=== PATIENT | female | born 1980 | race Caucasian/White ===

== ENCOUNTER 2017-11-17 22:03 | Emergency (ER) | payer OTHER ==
[~2017-11-17] VITALS: Ht 162.6 cm; Wt 124.7 kg
[~2017-11-17 22:03] MED LIST: ALBU90OI INH; AMOX500 PO; BENTYL20 MG PO; BENZ100A PO; BUPR75; Bactrim Ds Tab1 EACH PO; Bupropion Xl150 MG PO; CEPH500 PO; CODGUAEL PO; CYCL10 PO; DOXY100 PO; DULO30 PO; DULO60; ESTR2 PO; HYDACE5 PO; HYDR1TAB94 PO; IBUP800 PO; LOPE2C PO; METO25ER; METO50ER PO; NAPR500 PO; NORTEL; Nasal & Sinus D30 MG PO; Norco 5-325 Ta1 EACH PO; OXYACE5T PO; PHENA100 PO; PROM25; PROM25 PO; Prednisone20 MG PO; Prozac20 MG; SERT100; TRAM50 PO; ZOLOFT; Zofran8 MG PO
[2017-11-17] MEDS ORDERED: ATEN25 PO (22:17)
[2017-11-17] MEDS ORDERED: Nortriptyline H10 MG PO (22:17)
[2018-10-11] MEDS ORDERED: LEVSOD50 PO (19:06)
[2018-10-11] MEDS ORDERED: LORA1 PO (19:07)
[2018-10-11] MEDS ORDERED: Prozac20 MG (19:07)
[2018-10-14] MEDS ORDERED: LATUDA20 MG PO (13:36)
[2018-10-14] MEDS ORDERED: ZIPR20 PO (14:23)
[2018-10-14] MEDS ORDERED: BUSP5 PO (15:33)
[2018-10-14] MEDS ORDERED: Cymbalta30 MG PO (15:33)
== END 2017-11-17 23:07 | disposition home or self-care (01) ==
LOC: ER 22:03
DX: S59.901A Unspecified injury of right elbow, initial encounter (principal); J45.909 Unspecified asthma, uncomplicated; F32.9 Major depressive disorder, single episode, unspecified; F41.9 Anxiety disorder, unspecified; Z91.011 Allergy to milk products; Z91.018 Allergy to other foods; Z79.899 Other long term (current) drug therapy; Z90.710 Acquired absence of both cervix and uterus; Z87.891 Personal history of nicotine dependence; W01.0XXA Fall on same level from slipping, tripping and stumbling without subsequent striking against object, initial encounter
CPT/HCPCS: 29105; 73080; 99283

== ENCOUNTER 2018-05-26 22:52 | Emergency (ER) | payer OTHER ==
[~2018-05-26] VITALS: Ht 162.6 cm; Wt 97.5 kg
[~2018-05-26 22:52] MED LIST changes: +ATEN25 PO; +Nortriptyline H10 MG PO
== END 2018-05-27 01:58 | disposition home or self-care (01) ==
LOC: ER 22:52
DX: S80.12XA Contusion of left lower leg, initial encounter (principal); J45.909 Unspecified asthma, uncomplicated; F41.9 Anxiety disorder, unspecified; F32.9 Major depressive disorder, single episode, unspecified; Z91.011 Allergy to milk products; Z91.018 Allergy to other foods; Z79.899 Other long term (current) drug therapy; Z87.891 Personal history of nicotine dependence; V92.09XA Drowning and submersion due to fall off unspecified watercraft, initial encounter
CPT/HCPCS: 96374; 99283-25; J1885

== ENCOUNTER 2018-12-21 10:21 | Emergency (ER) | payer OTHER ==
[~2018-12-21] VITALS: Ht 162.6 cm; Wt 90.7 kg
[~2018-12-21 10:21] MED LIST changes: +BUSP5 PO; +Cymbalta30 MG PO; +LATUDA20 MG PO; +LEVSOD50 PO; +LORA1 PO; +ZIPR20 PO
[2018-12-21] MEDS ORDERED: TRAM50 PO (10:45)
[2018-12-21] MEDS ORDERED: TRAZ50 PO ×2 (10:45→11:41)
[2018-12-21 11:05] LABS: BASOPHILS ABSOLUTE AUTO 0.06 K/mm3 (0.00-0.23); BASOPHILS PERCENT AUTO 1 % (0-2); EOSINOPHILS ABSOLUTE AUTO 0.34 K/mm3 (0.00-0.68); EOSINOPHILS PERCENT AUTO 6 % (0-6); Hematocrit 37.5 % (33.0-51.0); Hemoglobin 11.9 g/dL (11.5-16.0); IMMATURE GRAN ABSOLUTE AUTO 0.01 K/mm3 (0.00-0.10); IMMATURE GRAN PERCENT AUTO 0 % (0-1); LYMPHOCYTES ABSOLUTE AUTO 2.24 K/mm3 (0.84-5.20); LYMPHOCYTES PERCENT AUTO 41 % (21-46); MONOCYTES ABSOLUTE AUTO 0.23 K/mm3 (0.16-1.47); MONOCYTES PERCENT AUTO 4 % (4-13); Mean Corpuscular HGB 28.3 pg (26.0-34.0); Mean Corpuscular HGB Conc 31.7 g/dL (31.5-36.5); Mean Corpuscular Volume 89 fL (80-100); Mean Platelet Volume 11.1 fL (9.1-12.4); NEUTROPHILS ABSOLUTE AUTO 2.64 K/mm3 (1.96-9.15); NEUTROPHILS PERCENT AUTO 48 % (41-73); Platelet Count 306 K/mm3 (150-400); RDW Coefficient Variation 14.4 % (11.7-14.2); RDW Standard Deviation 46.3 fL (35.1-46.3); Red Blood Cell Count 4.21 M/mm3 (3.80-5.20); White Blood Cell Count 5.52 K/mm3 (4.00-11.30)
[2018-12-21 11:26] LABS: Alanine Aminotransfer (ALT/SGP 27 U/L (12-78); Albumin, Blood 3.4 g/dL (3.4-5.0); Alk Phos 91 U/L (50-136); Anion Gap 8 mmol/L (6-16); Aspartate Aminotrans (AST/SGOT 17 U/L (12-37); Bilirubin, Total 0.5 mg/dL (0.1-1.0); Blood Urea Nitrogen 11 mg/dL (8-24); Bun/Creatinine Ratio 13.4 (12.0-20.0); CO2, Blood 27 mmol/L (21-32); Calcium, Blood 8.5 mg/dL (8.5-10.1); Chloride, Blood 110 mmol/L (98-108); Creatinine, Blood 0.82 mg/dL (0.40-1.00); Globulin, Blood 3.4 g/dL (2.2-4.0); Glomerular Filtration Rate >60 (60-); Glucose, Blood 140 mg/dL (70-99); Potassium, Blood 3.7 mmol/L (3.5-5.5); Sodium, Blood 145 mmol/L (136-145); Total Protein, Blood 6.8 g/dL (6.4-8.2)
== END 2018-12-21 12:06 | disposition home or self-care (01) ==
LOC: ER 10:21
PROVIDERS: Emergency Medicine
DX: K80.20 Calculus of gallbladder without cholecystitis without obstruction (principal); F41.9 Anxiety disorder, unspecified; F32.9 Major depressive disorder, single episode, unspecified; J45.909 Unspecified asthma, uncomplicated; Z91.011 Allergy to milk products; Z91.018 Allergy to other foods; Z79.899 Other long term (current) drug therapy; Z87.891 Personal history of nicotine dependence
CPT/HCPCS: 36415; 80053; 83690; 85025; 96361; 96374; 99284-25; J2405; J7030

== ENCOUNTER 2019-01-01 14:28 | Observation (INO) | payer OTHER ==
[~2019-01-01] VITALS: Ht 162.6 cm; Wt 99.8 kg
[~2019-01-01 14:28] MED LIST changes: +TRAZ50 PO
[2019-01-01 15:25] LABS: BASOPHILS ABSOLUTE AUTO 0.08 K/mm3 (0.00-0.23); BASOPHILS PERCENT AUTO 1 % (0-2); EOSINOPHILS ABSOLUTE AUTO 0.33 K/mm3 (0.00-0.68); EOSINOPHILS PERCENT AUTO 4 % (0-6); Hemoglobin 12.5 g/dL (11.5-16.0); IMMATURE GRAN ABSOLUTE AUTO 0.01 K/mm3 (0.00-0.10); IMMATURE GRAN PERCENT AUTO 0 % (0-1); LYMPHOCYTES PERCENT AUTO 36 % (21-46); MONOCYTES ABSOLUTE AUTO 0.45 K/mm3 (0.16-1.47); MONOCYTES PERCENT AUTO 6 % (4-13); Mean Corpuscular HGB 28.3 pg (26.0-34.0); Mean Corpuscular HGB Conc 32.1 g/dL (31.5-36.5); Mean Corpuscular Volume 88 fL (80-100); Mean Platelet Volume 10.9 fL (9.1-12.4); NEUTROPHILS ABSOLUTE AUTO 3.98 K/mm3 (1.96-9.15); NEUTROPHILS PERCENT AUTO 53 % (41-73); Platelet Count 355 K/mm3 (150-400); RDW Coefficient Variation 13.9 % (11.7-14.2); RDW Standard Deviation 45.1 fL (35.1-46.3); Red Blood Cell Count 4.41 M/mm3 (3.80-5.20); White Blood Cell Count 7.55 K/mm3 (4.00-11.30)
[2019-01-01 15:51] LABS: Alanine Aminotransfer (ALT/SGP 36 U/L (12-78); Albumin, Blood 3.9 g/dL (3.4-5.0); Alk Phos 94 U/L (50-136); Anion Gap 4 mmol/L (6-16); Aspartate Aminotrans (AST/SGOT 21 U/L (12-37); Bilirubin, Total 0.3 mg/dL (0.1-1.0); Blood Urea Nitrogen 13 mg/dL (8-24); Bun/Creatinine Ratio 18.6 (12.0-20.0); CO2, Blood 29 mmol/L (21-32); Calcium, Blood 8.7 mg/dL (8.5-10.1); Chloride, Blood 104 mmol/L (98-108); Globulin, Blood 3.8 g/dL (2.2-4.0); Glomerular Filtration Rate >60 (60-); Glucose, Blood 89 mg/dL (70-99); Potassium, Blood 3.7 mmol/L (3.5-5.5); Salicylate <1.7 mg/dL (2.8-20.0); Sodium, Blood 137 mmol/L (136-145); Total Protein, Blood 7.7 g/dL (6.4-8.2)
[2019-01-01 16:06] LABS: Acetaminophen, Random <2.0 ug/mL (10.0-30.0); Ethanol (Alcohol), Blood, Med <3 mg/dL
[2019-01-01 16:06] LABS: Source, Urine Clean Catch
[2019-01-01 16:11] LABS: Appearance, Urine Clear (Clear); Bilirubin, Urine Neg (Neg); Blood, Urine Neg (Neg); Color, Urine Yellow (P-Yellow); Glucose Qualitative, Urine Neg (Neg); Ketones, Urine Neg (Neg); Leukocyte Esterase, Urine Neg (Neg); Nitrite, Urine Neg (Neg); Protein, Urine Neg (Neg); Specific Gravity, Urine 1.005 (1.003-1.022); Urobilinogen, Urine NORM (Normal)
[2019-01-01 16:27] LABS: U Amphetamine Screen Not Detected; U Barbituate Screen Not Detected; U Benzodiazapine Screen DETECTED; U Buprenorphine Screen Not Detected; U Cannabinoids Screen Not Detected; U Cocaine Screen Not Detected; U Methadone Screen Not Detected; U Methamphetamine Screen Not Detected; U Opiates Screen Not Detected; U Oxycodone Screen Not Detected; U Phencyclidine Screen Not Detected; U Propoxyphene Screen Not Detected
[2019-01-01] MEDS ORDERED: PRAM.125 PO (16:28)
[2019-01-01] MEDS ORDERED: DULO30 PO ×2 (16:28→22:26)
[2019-01-01] MEDS ORDERED: OLAN5 PO (16:29)
[2019-01-01] MEDS ORDERED: PREPLUS CA-FE1 EACH PO (16:29)
[2019-01-01] MEDS ORDERED: CHOL10002 (16:29)
[2019-01-01] MEDS ORDERED: Advair Hfa 230-12 GM (16:30)
[2019-01-01] MEDS ORDERED: OLAN10 PO (22:17)
[2019-01-02] MEDS ORDERED: Zyprexa10 MG PO (13:34)
== END 2019-01-02 13:45 | disposition home or self-care (01) ==
LOC: ER 14:28 → EOR 14:29
PROVIDERS: Physician Assistant; ADMIT Emergency Medicine
DX: S61.512A Laceration without foreign body of left wrist, initial encounter (principal); F31.9 Bipolar disorder, unspecified; F13.129 Sedative, hypnotic or anxiolytic abuse with intoxication, unspecified; F60.3 Borderline personality disorder; J45.909 Unspecified asthma, uncomplicated; F41.9 Anxiety disorder, unspecified; Z91.018 Allergy to other foods; Z79.899 Other long term (current) drug therapy; Z87.891 Personal history of nicotine dependence; W26.0XXA Contact with knife, initial encounter
CPT/HCPCS: 36415; 80053; 81003; 81025; 84443; 85025; 93005; 93010; 99285-25; G0378; G0480; Q0177; Q3014

== ENCOUNTER 2019-09-12 08:56 | Day surgery (SDC) | payer BC ==
[~2019-09-12] VITALS: Ht 162.6 cm; Wt 109.1 kg
[~2019-09-12 08:56] MED LIST changes: +Advair Hfa 230-12 GM; +CHOL10002; +DULO60 PO; +LORA1; +OLAN10 PO; +OLAN5; +OLAN5 PO; +ONDA4 PO; +PRAM.125 PO; +PRAM.5 PO; +PREPLUS CA-FE1 EACH PO; +PROAIR RESPICL90 MCG INH; +TRAZ100 PO; +Zyprexa10 MG PO
--- NOTE | 2019-09-12 10:19 | NUR ---
09/12/19 1019 Mirta Valadez TWO UNSUCCESSFUL BEIR BLOCK ATTEMPTS IN LEFT HAND ORSC.FLL.
--- NOTE | 2019-09-12 12:47 | NUR ---
09/12/19 1247 Radha Hazel 1235 PT. VERBALIZES READY TO GO HOME. PT. DENIES ANY PAIN OR NAUSEA. PT. GIVEN A SLING FOR HOME. HOME DISCHARGE INSTRUCTIONS GIVEN TO PT. & MOM WITH UNDERSTANDING. ICE PACK SENT HOME WITH PT.
== END 2019-09-12 12:45 | disposition home or self-care (01) ==
LOC: ORSCSDS 08:56
PROVIDERS: Orthopaedic Surgery
PROC: 01N50ZZ Release Median Nerve, Open Approach (ICD-10-PCS; principal; 2019-09-12 11:00)
DX: G56.02 Carpal tunnel syndrome, left upper limb (principal); I10 Essential (primary) hypertension; E03.9 Hypothyroidism, unspecified; E66.01 Morbid (severe) obesity due to excess calories; Z68.41 Body mass index [BMI] 40.0-44.9, adult; M79.7 Fibromyalgia; E28.2 Polycystic ovarian syndrome; Z79.899 Other long term (current) drug therapy; J45.909 Unspecified asthma, uncomplicated
CPT/HCPCS: J0690; J1100; J1885; J2250; J2405; J2704; J3010; J7120

== ENCOUNTER 2019-09-27 18:34 | Observation (INO) | payer BC ==
[~2019-09-27] VITALS: Ht 162.6 cm; Wt 107.5 kg
[~2019-09-27 18:34] MED LIST changes: +LORA.5 PO; -LORA1; -OLAN5; +OLANZAPINE ODT5 MG PO; -PROAIR RESPICL90 MCG INH; -TRAZ100 PO
[2019-09-27 19:01] LABS: Source, Urine Voided
[2019-09-27 19:05] LABS: Bilirubin, Urine Neg (Neg); Blood, Urine Neg (Neg); Glucose Qualitative, Urine Neg (Neg); Ketones, Urine Neg (Neg); Leukocyte Esterase, Urine Neg (Neg); Nitrite, Urine Neg (Neg); Protein, Urine Neg (Neg); Specific Gravity, Urine 1.005 (1.003-1.022); Urobilinogen, Urine NORM (Normal); pH, Urine 6.5 (5.0-8.0)
[2019-09-27 19:05] LABS: BASOPHILS ABSOLUTE AUTO 0.09 K/mm3 (0.00-0.23); BASOPHILS PERCENT AUTO 1 % (0-2); EOSINOPHILS ABSOLUTE AUTO 0.13 K/mm3 (0.00-0.68); EOSINOPHILS PERCENT AUTO 2 % (0-6); Hematocrit 39.1 % (33.0-51.0); Hemoglobin 12.6 g/dL (11.5-16.0); IMMATURE GRAN ABSOLUTE AUTO 0.02 K/mm3 (0.00-0.10); IMMATURE GRAN PERCENT AUTO 0 % (0-1); LYMPHOCYTES ABSOLUTE AUTO 1.54 K/mm3 (0.84-5.20); LYMPHOCYTES PERCENT AUTO 17 % (21-46); MONOCYTES ABSOLUTE AUTO 0.41 K/mm3 (0.16-1.47); MONOCYTES PERCENT AUTO 5 % (4-13); Mean Corpuscular HGB 27.6 pg (26.0-34.0); Mean Corpuscular HGB Conc 32.2 g/dL (31.5-36.5); Mean Corpuscular Volume 86 fL (80-100); Mean Platelet Volume 10.8 fL (9.1-12.4); NEUTROPHILS ABSOLUTE AUTO 6.73 K/mm3 (1.96-9.15); NEUTROPHILS PERCENT AUTO 75 % (41-73); Platelet Count 331 K/mm3 (150-400); RDW Coefficient Variation 14.6 % (11.7-14.2); Red Blood Cell Count 4.56 M/mm3 (3.80-5.20); White Blood Cell Count 8.92 K/mm3 (4.00-11.30)
[2019-09-27 19:11] LABS: Appearance, Urine Clear (Clear); Color, Urine Yellow (P-Yellow)
[2019-09-27 19:25] LABS: Alanine Aminotransfer (ALT/SGP 156 U/L (12-78); Albumin, Blood 3.5 g/dL (3.4-5.0); Albumin/Globulin Ratio 0.9 (0.8-1.8); Alk Phos 141 U/L (50-136); Anion Gap 6 mmol/L (6-16); Aspartate Aminotrans (AST/SGOT 348 U/L (12-37); Bilirubin, Total 0.8 mg/dL (0.1-1.0); Blood Urea Nitrogen 12 mg/dL (8-24); CO2, Blood 24 mmol/L (21-32); Calcium, Blood 9.2 mg/dL (8.5-10.1); Chloride, Blood 112 mmol/L (98-108); Creatinine, Blood 0.86 mg/dL (0.40-1.00); Globulin, Blood 3.7 g/dL (2.2-4.0); Glomerular Filtration Rate >60 (60-); Glucose, Blood 129 mg/dL (70-99); Potassium, Blood 3.8 mmol/L (3.5-5.5); Sodium, Blood 142 mmol/L (136-145); Total Protein, Blood 7.2 g/dL (6.4-8.2)
[2019-09-27] MEDS ORDERED: PREPLUS CA-FE1 EACH PO (21:47)
[2019-09-27] MEDS ORDERED: BUPR100ER PO (21:52)
--- NOTE | 2019-09-28 06:34 | NUR ---
PT NEW ADMIT THIS SHIFT FOR ACUTE JOSE EDUARDO. PT VSS SINCE ARRIVING TO FLOOR, PAIN MGD PER EMAR W/REP RELIEF. PT NPO FOR PLAN FOR OR TODAY. IVF CONT PER ORDERS. PT USING CALL LIGHT FOR ASSISTANCE, WILL CONT TO MONITOR UNTIL REP GIVEN TO ONCOMING RN.
--- NOTE | 2019-09-28 15:41 | NUR ---
"DAY SURGERY RN | TO OR BOTH DOCTORS AND DIPLOMATIC COURIER HAVE SEEN. REPORT TO LALO PALENCIA."
--- NOTE | 2019-09-28 16:41 | NUR ---
PT IN OR
--- NOTE | 2019-09-28 19:04 | NUR ---
SUMMARY VSS, DENIES ANY NEED FOR PAIN MEDS SINCE POST OP, VOIDING WITHOUT DIFFICULTY, AMBULATED IN ROOM, TOLERATING REGULAR FOOD WELL, PT WANTS TO DC HOME TONIGHT BUT PHARMACIES ARE CLOSED AND WILL BE UNABLE TO FILL PAIN MED RX, PLAN TO DC HOME IN AM.
--- NOTE | 2019-09-29 06:08 | NUR ---
POD 1 S/P LAP JOSE EDUARDO. PT VSS T/O NIGHT. STERI STRIPS CDI. PAIN MGD W/PO PAIN MEDS W/REP RELIEF. PT VIANCA REG PO, NO N/O N/V, BT ACTIVE. PT VOIDING URINE W/O DIFFICULTY. PT INDEP IN ROOM, IS USING CALL LIGHT FOR ASSISTANCE, PLAN TO D/C HOME TODAY. WILL CONT TO MONITOR UNTIL REP GIVEN TO ONCOMING RN.
[2019-09-29] MEDS ORDERED: OXYC5 PO (13:56)
--- NOTE | 2019-09-29 14:51 | NUR ---
DISCHARGE SUMMARY PT A&OX4, VSS, WALKED OFF FLOOR, REF WC, WITH ALL PERSONAL POSSESSIONS INCLUDING DISCHARGE PACKET AND 1 NARC SCRIPT. DC INSTRUCTIONS PROVIDED. PT REP UNDERSTANDING THOSE INSTRUCTIONS INCLUDING 2 WK FU WITH SURGEON, NO DRIVING WHILE TAKING NARCS, NO LIFTING >20 LBS, SPLINTING, LEAVE STERI STRIPS IN PLACE 7-10 DAYS, WILL COME OFF ON THEIR OWN, OTHERWISE SG WILL REMOVE AT APPT, OK TO SHOWER NO TUB/JACUZZI. 2 IVS DC'D.
[2019-10-20] MEDS ORDERED: ATEN25 PO (11:01)
[2019-10-20] MEDS ORDERED: LEVSOD50 PO (11:02)
[2019-10-20] MEDS ORDERED: Ventolin/Prove6.7 GM INH (11:03)
[2019-10-20] MEDS ORDERED: LORA1 (11:03)
[2019-10-20] MEDS ORDERED: ONDA4 PO (11:03)
[2019-10-20] MEDS ORDERED: PRAM.5 PO (11:04)
[2019-10-20] MEDS ORDERED: OLAN5 (11:04)
[2019-10-20] MEDS ORDERED: DULO60 PO (11:04)
[2019-10-20] MEDS ORDERED: TRAZ100 PO (11:05)
== END 2019-09-29 14:20 | disposition home or self-care (01) ==
LOC: ER 18:34 → SURS 18:35
PROVIDERS: Emergency Medicine; ADMIT Surgery
DX: K80.10 Calculus of gallbladder with chronic cholecystitis without obstruction (principal); J45.909 Unspecified asthma, uncomplicated; F41.9 Anxiety disorder, unspecified; F32.9 Major depressive disorder, single episode, unspecified; Z79.899 Other long term (current) drug therapy; Z87.891 Personal history of nicotine dependence
CPT/HCPCS: 36415; 76705; 80053; 81003; 81025; 83690; 85025; 96365; 96375; 96376; 99285-25; G0378; J0690; J1100; J1170; J1885; J2250; J2405; J2543; J2704; J2710; J2765; J3010; J7030; J7120

== ENCOUNTER 2019-10-24 11:02 | Day surgery (SDC) | payer BC ==
[~2019-10-24] VITALS: Ht 162.6 cm; Wt 107.6 kg
[~2019-10-24 11:02] MED LIST changes: +BUPR100ER PO; +LORA1; +OLAN5; +OXYC5 PO; +TRAZ100 PO; +Ventolin/Prove6.7 GM INH
[2019-10-25] MEDS ORDERED: Roxicodone5 MG PO (18:02)
== END 2019-10-24 14:24 | disposition home or self-care (01) ==
LOC: ORSCSDS 11:02
PROVIDERS: Orthopaedic Surgery
PROC: 01N50ZZ Release Median Nerve, Open Approach (ICD-10-PCS; principal; 2019-10-24 13:00)
DX: G56.01 Carpal tunnel syndrome, right upper limb (principal); I10 Essential (primary) hypertension; E03.9 Hypothyroidism, unspecified; E28.2 Polycystic ovarian syndrome; E66.01 Morbid (severe) obesity due to excess calories; Z68.41 Body mass index [BMI] 40.0-44.9, adult; F41.8 Other specified anxiety disorders; F43.10 Post-traumatic stress disorder, unspecified; I47.1 Supraventricular tachycardia; F17.290 Nicotine dependence, other tobacco product, uncomplicated; Z79.899 Other long term (current) drug therapy
CPT/HCPCS: J0690; J2250; J2704; J3010; J7120

== ENCOUNTER 2019-10-25 16:33 | Emergency (ER) | payer BC ==
[~2019-10-25] VITALS: Ht 162.6 cm; Wt 107.5 kg
[2019-10-25] MEDS ORDERED: Roxicodone5 MG PO (18:02)
== END 2019-10-25 18:28 | disposition home or self-care (01) ==
LOC: ER 16:33
DX: G89.18 Other acute postprocedural pain (principal); M79.641 Pain in right hand; Z91.018 Allergy to other foods; Z79.899 Other long term (current) drug therapy; F41.9 Anxiety disorder, unspecified; J45.909 Unspecified asthma, uncomplicated; F31.9 Bipolar disorder, unspecified; Z87.891 Personal history of nicotine dependence
CPT/HCPCS: 96372; 99283-25; J1885; J3010

== ENCOUNTER 2019-11-21 12:22 | Emergency (ER) | payer BC ==
[~2019-11-21] VITALS: Ht 162.6 cm; Wt 104.3 kg
[~2019-11-21 12:22] MED LIST changes: +Roxicodone5 MG PO
[2019-11-21] MEDS ORDERED: CYCL10 PO (15:01)
[2019-11-21] MEDS ORDERED: NAPR550 PO (15:01)
== END 2019-11-21 15:38 | disposition home or self-care (01) ==
LOC: ER 12:22
DX: M62.830 Muscle spasm of back (principal); F31.9 Bipolar disorder, unspecified; Z87.891 Personal history of nicotine dependence
CPT/HCPCS: 96372; 99283-25; J1885

== ENCOUNTER 2020-07-27 03:37 | Emergency (ER) | payer OTHER, BC ==
[~2020-07-27] VITALS: Ht 162.6 cm; Wt 102.1 kg
[~2020-07-27 03:37] MED LIST changes: +NAPR550 PO
[2020-07-27] MEDS ORDERED: CYCL10 PO (05:44)
== END 2020-07-27 06:05 | disposition home or self-care (01) ==
LOC: ER 03:37
DX: M54.5 Low back pain (principal); R20.2 Paresthesia of skin; E11.9 Type 2 diabetes mellitus without complications; J45.909 Unspecified asthma, uncomplicated; F41.9 Anxiety disorder, unspecified; F32.9 Major depressive disorder, single episode, unspecified; Z87.891 Personal history of nicotine dependence; Z91.018 Allergy to other foods; Z79.899 Other long term (current) drug therapy; W01.0XXA Fall on same level from slipping, tripping and stumbling without subsequent striking against object, initial encounter
CPT/HCPCS: 72100; 96372; 99283-25; J1100; J1885

== ENCOUNTER 2020-09-02 09:14 | Day surgery (SDC) | payer BC ==
[~2020-09-02 09:14] MED LIST changes: +CENTRUM SILVER1 EAC2 PO
--- NOTE | 2020-09-02 10:01 | NUR ---
Ambulatory in Day Surgery Patient confirms NPO status and agrees with scheduled surgery. Lungs clear T/O to Auscultation. Patient confirms NPO status and agrees with scheduled surgery.
--- NOTE | 2020-09-02 10:56 | NUR ---
09/02/20 1056 MarbellaAlberta R History, Chart, Medications and Allergies reviewed before start of procedure.Patient confirms NPO status and agrees with scheduled surgery.3-LEAD EKG REVIEWED WITH PHYSICIAN PRIOR TO START OF PROCEDURE.MONITOR INTACT WITH CONTINUOUS PULSE OXIMETRY AND INTERMITTENT BP.O2 VIA N/C INTACT THROUGHOUT SEDATION/PROCEDURE. PATIENT DETERMINED TO BE ASA APPROPRIATE FOR PROPOFOL SEDATION PRIOR TO START OF PROCEDURE BY DR. MATT
--- NOTE | 2020-09-02 11:47 | NUR ---
PT INSTRUCTED TO USE HEAT TO HELP W/IV INFILTRATION SITE.
--- NOTE | 2020-09-02 11:49 | NUR ---
Discharge instructions reviewed with patient. Patient verbalizes understanding. Copy given to patient to take home. Discharged via wheelchair to private car for ride home. PT TOLERATED CRACKERS AND JUICE WELL.
== END 2020-09-02 12:00 | disposition home or self-care (01) ==
LOC: ORSCMMR 09:14 → ORD 10:00 → ORSCMMR 12:00
PROVIDERS: Internal Medicine Gastroenterology
PROC: 0DB68ZX Excision of Stomach, Via Natural or Artificial Opening Endoscopic, Diagnostic (ICD-10-PCS; principal; 2020-09-02 10:00)
PROC: 0DB98ZX Excision of Duodenum, Via Natural or Artificial Opening Endoscopic, Diagnostic (ICD-10-PCS; principal; 2020-09-02 10:00)
DX: K92.1 Melena (principal); Z98.84 Bariatric surgery status; K44.9 Diaphragmatic hernia without obstruction or gangrene; Z87.11 Personal history of peptic ulcer disease; E11.9 Type 2 diabetes mellitus without complications; E03.9 Hypothyroidism, unspecified; F31.9 Bipolar disorder, unspecified; R00.0 Tachycardia, unspecified; E66.01 Morbid (severe) obesity due to excess calories; Z68.36 Body mass index [BMI] 36.0-36.9, adult; Z79.899 Other long term (current) drug therapy
CPT/HCPCS: 82947; 88305; 88342; J2250; J2704; J7120

== ENCOUNTER 2020-10-07 17:15 | Emergency (ER) | payer BC ==
[~2020-10-07] VITALS: Ht 162.6 cm; Wt 93.0 kg
[2020-10-07] MEDS ORDERED: BUPR100ER PO (17:46)
[2020-10-07] MEDS ORDERED: CLON.5 PO (17:47)
[2020-10-07] MEDS ORDERED: CYMBALTA30 MG PO (17:47)
[2020-10-07] MEDS ORDERED: LEVO-T50 MC1 PO (17:47)
[2020-10-07] MEDS ORDERED: ATENOLOL25 MG PO (17:47)
[2020-10-07] MEDS ORDERED: LAMOTRIGINE25 M2 PO (17:47)
[2020-10-07] MEDS ORDERED: PROMETRIUM200 M1 PO (17:47)
[2020-10-07 20:12] LABS: Alanine Aminotransfer (ALT/SGP 17 U/L (12-78); Albumin, Blood 3.6 g/dL (3.4-5.0); Albumin/Globulin Ratio 1.1 (0.8-1.8); Alk Phos 61 U/L (50-136); Anion Gap 2 mmol/L (6-16); Aspartate Aminotrans (AST/SGOT 18 U/L (12-37); Bilirubin, Total 0.3 mg/dL (0.1-1.0); Blood Urea Nitrogen 15 mg/dL (8-24); Bun/Creatinine Ratio 17.7 (12.0-20.0); CO2, Blood 31 mmol/L (21-32); Calcium, Blood 8.5 mg/dL (8.5-10.1); Chloride, Blood 109 mmol/L (98-108); Creatinine, Blood 0.85 mg/dL (0.40-1.00); Free Thyroxine 1.03 ng/dL (0.70-1.60); Globulin, Blood 3.4 g/dL (2.2-4.0); Glomerular Filtration Rate >60 (60-); Glucose, Blood 81 mg/dL (70-99); Sodium, Blood 142 mmol/L (136-145); Thyroid Stimulating Hormone 0.881 uIU/mL (0.360-4.800)
[2020-10-07] MEDS ORDERED: Ativan0.5 MG PO (21:12)
== END 2020-10-07 21:18 | disposition home or self-care (01) ==
LOC: ER 17:15
PROVIDERS: Emergency Medicine
DX: F41.9 Anxiety disorder, unspecified (principal); J45.909 Unspecified asthma, uncomplicated; F31.9 Bipolar disorder, unspecified; E11.9 Type 2 diabetes mellitus without complications; Z79.3 Long term (current) use of hormonal contraceptives; Z79.899 Other long term (current) drug therapy; Z87.891 Personal history of nicotine dependence
CPT/HCPCS: 36415; 80053; 84439; 84443; 99284

== ENCOUNTER 2020-10-18 19:01 | Emergency (ER) | payer BC ==
[~2020-10-18] VITALS: Ht 162.6 cm; Wt 90.7 kg
[~2020-10-18 19:01] MED LIST changes: +ATENOLOL25 MG PO; +Ativan0.5 MG PO; +CLON.5 PO; +CYMBALTA30 MG PO; +LAMOTRIGINE25 M2 PO; +LEVO-T50 MC1 PO; +PROMETRIUM200 M1 PO
[2020-10-18 20:08] LABS: Influenza A, PCR Negative (NEGATIVE); Influenza B, PCR Negative (NEGATIVE); Resp Syncytial Virus, PCR Negative (NEGATIVE); SARS-Cov-2 (COVID-19) PCR, MMC Negative (NEGATIVE)
== END 2020-10-18 19:55 | disposition home or self-care (01) ==
LOC: ER 19:01
PROVIDERS: Physician Assistant
DX: R05 Cough (principal); F41.9 Anxiety disorder, unspecified; F31.9 Bipolar disorder, unspecified; E11.9 Type 2 diabetes mellitus without complications; J45.909 Unspecified asthma, uncomplicated; Z20.828 Contact with and (suspected) exposure to other viral communicable diseases; Z79.3 Long term (current) use of hormonal contraceptives; Z87.891 Personal history of nicotine dependence; Z79.899 Other long term (current) drug therapy
CPT/HCPCS: 0241U; 99284

== ENCOUNTER 2020-12-22 23:37 | Emergency (ER) | payer BC ==
[~2020-12-22] VITALS: Ht 162.6 cm; Wt 86.2 kg
[2020-12-22] MEDS ORDERED: BUPROPION XL150 M1 PO (23:47)
[2020-12-22] MEDS ORDERED: TOPI25C PO (23:47)
[2020-12-23 00:33] LABS: Source, Urine Clean Catch
[2020-12-23 00:39] LABS: BASOPHILS ABSOLUTE AUTO 0.09 K/mm3 (0.00-0.23); BASOPHILS PERCENT AUTO 1 % (0-2); EOSINOPHILS ABSOLUTE AUTO 0.12 K/mm3 (0.00-0.68); EOSINOPHILS PERCENT AUTO 1 % (0-6); Hematocrit 44.6 % (33.0-51.0); Hemoglobin 14.4 g/dL (11.5-16.0); IMMATURE GRAN ABSOLUTE AUTO 0.01 K/mm3 (0.00-0.10); IMMATURE GRAN PERCENT AUTO 0 % (0-1); LYMPHOCYTES ABSOLUTE AUTO 3.42 K/mm3 (0.84-5.20); LYMPHOCYTES PERCENT AUTO 40 % (21-46); MONOCYTES ABSOLUTE AUTO 0.55 K/mm3 (0.16-1.47); MONOCYTES PERCENT AUTO 7 % (4-13); Mean Corpuscular HGB 29.1 pg (26.0-34.0); Mean Corpuscular HGB Conc 32.3 g/dL (31.5-36.5); Mean Corpuscular Volume 90 fL (80-100); Mean Platelet Volume 11.2 fL (9.1-12.4); NEUTROPHILS ABSOLUTE AUTO 4.33 K/mm3 (1.96-9.15); NEUTROPHILS PERCENT AUTO 51 % (41-73); Platelet Count 302 K/mm3 (150-400); RDW Coefficient Variation 12.9 % (11.7-14.2); RDW Standard Deviation 42.4 fL (35.1-46.3); Red Blood Cell Count 4.94 M/mm3 (3.80-5.20); White Blood Cell Count 8.52 K/mm3 (4.00-11.30)
[2020-12-23 00:41] LABS: Appearance, Urine Clear (Clear); Bilirubin, Urine Neg (Neg); Blood, Urine Neg (Neg); Color, Urine Yellow (P-Yellow); Glucose Qualitative, Urine Neg (Neg); Ketones, Urine 1+ (Neg); Leukocyte Esterase, Urine 1+ (Neg); Nitrite, Urine Neg (Neg); Protein, Urine 1+ (Neg); Urobilinogen, Urine NORM (Normal)
[2020-12-23 00:49] LABS: Mucus Light (0-Heavy); Squamous Epithelial Cells Mod /hpf (Few)
[2020-12-23 00:50] LABS: Bacteria Mod /hpf; Red Blood Cells, Urine Rare /hpf (0-2)
[2020-12-23 00:52] LABS: U Amphetamine Screen Not Detected; U Barbituate Screen Not Detected; U Benzodiazapine Screen Not Detected; U Buprenorphine Screen Not Detected; U Cannabinoids Screen Not Detected; U Cocaine Screen Not Detected; U Methadone Screen Not Detected; U Methamphetamine Screen Not Detected; U Opiates Screen Not Detected; U Oxycodone Screen Not Detected; U Phencyclidine Screen Not Detected; U Propoxyphene Screen Not Detected
[2020-12-23 00:56] LABS: Alanine Aminotransfer (ALT/SGP 29 U/L (12-78); Albumin, Blood 3.9 g/dL (3.4-5.0); Albumin/Globulin Ratio 1.1 (0.8-1.8); Alk Phos 69 U/L (50-136); Anion Gap 5 mmol/L (6-16); Aspartate Aminotrans (AST/SGOT 18 U/L (12-37); Bilirubin, Total 0.5 mg/dL (0.1-1.0); Blood Urea Nitrogen 10 mg/dL (8-24); CO2, Blood 30 mmol/L (21-32); Calcium, Blood 8.8 mg/dL (8.5-10.1); Chloride, Blood 107 mmol/L (98-108); Creatinine, Blood 0.91 mg/dL (0.40-1.00); Ethanol (Alcohol), Blood, Med <3 mg/dL; Globulin, Blood 3.6 g/dL (2.2-4.0); Glomerular Filtration Rate >60 (60-); Glucose, Blood 82 mg/dL (70-99); Potassium, Blood 3.8 mmol/L (3.5-5.5); Salicylate <1.7 mg/dL (2.8-20.0); Sodium, Blood 142 mmol/L (136-145); Total Protein, Blood 7.5 g/dL (6.4-8.2)
[2020-12-23 00:59] LABS: Acetaminophen, Random <2.0 ug/mL (10.0-30.0)
== END 2020-12-23 03:03 | disposition home or self-care (01) ==
LOC: ER 23:37
PROVIDERS: Emergency Medicine
DX: S71.112A Laceration without foreign body, left thigh, initial encounter (principal); E11.9 Type 2 diabetes mellitus without complications; E03.9 Hypothyroidism, unspecified; Z79.899 Other long term (current) drug therapy; Z87.891 Personal history of nicotine dependence; X78.9XXA Intentional self-harm by unspecified sharp object, initial encounter
CPT/HCPCS: 36415; 80053; 81001; 81025; 85025; 87086; 99285-25; G0480; Q0177; Q3014

== ENCOUNTER 2021-05-22 02:58 | Emergency (ER) | payer BC ==
[~2021-05-22] VITALS: Ht 162.6 cm; Wt 79.4 kg
[~2021-05-22 02:58] MED LIST changes: +BUPROPION XL150 M1 PO; +TOPI25C PO
== END 2021-05-22 04:16 | disposition left against medical advice (07) ==
LOC: ER 02:58
DX: Z53.21 Procedure and treatment not carried out due to patient leaving prior to being seen by health care provider (principal)

== ENCOUNTER 2021-06-12 22:49 | Emergency (ER) | payer OTHER, BC ==
[~2021-06-12] VITALS: Ht 162.6 cm; Wt 76.2 kg
== END 2021-06-13 04:46 | disposition home or self-care (01) ==
LOC: ER 22:49
DX: S90.122A Contusion of left lesser toe(s) without damage to nail, initial encounter (principal); W20.8XXA Other cause of strike by thrown, projected or falling object, initial encounter; J45.909 Unspecified asthma, uncomplicated; E11.9 Type 2 diabetes mellitus without complications; E03.9 Hypothyroidism, unspecified
CPT/HCPCS: 73620; 96372; 99283-25; J1885

== ENCOUNTER 2021-08-16 09:03 | Day surgery (SDC) | payer OTHER, BC ==
[~2021-08-16] VITALS: Ht 167.6 cm; Wt 75.0 kg
--- NOTE | 2021-08-16 09:50 | NUR ---
08/16/21 0930 Molly Jacobs History, Chart, Medications and Allergies reviewed before start of procedure.PATIENT DETERMINED TO BE ASA APPROPRIATE FOR PROPOFOL SEDATION PRIOR TO START OF PROCEDURE BY . MONITOR INTACT WITH CONTINUOUS PULSE OXIMETRY AND INTERMITTENT BP.3-LEAD EKG REVIEWED WITH PHYSICIAN PRIOR TO START OF PROCEDURE.O2 VIA N/C INTACT THROUGHOUT SEDATION/PROCEDURE.
--- NOTE | 2021-08-16 10:46 | NUR ---
Discharge instructions reviewed with patient. Patient verbalizes understanding. Copy given to patient to take home. PT ATE SANDWICH, TOLERATING FLUIDS. NO PAIN. Discharged via wheelchair to private car for ride home.
== END 2021-08-16 10:47 | disposition home or self-care (01) ==
LOC: ORSCMMR 09:03 → ORSCSDS 10:15 → ORSCMMR 10:47
PROVIDERS: Surgery
PROC: 0DJD8ZZ Inspection of Lower Intestinal Tract, Via Natural or Artificial Opening Endoscopic (ICD-10-PCS; principal; 2021-08-16 10:15)
DX: R19.4 Change in bowel habit (principal); Z80.0 Family history of malignant neoplasm of digestive organs; E11.9 Type 2 diabetes mellitus without complications; E03.9 Hypothyroidism, unspecified; F31.9 Bipolar disorder, unspecified; F41.8 Other specified anxiety disorders; J45.909 Unspecified asthma, uncomplicated; Z79.899 Other long term (current) drug therapy
CPT/HCPCS: 82947; J2704; J7120

== ENCOUNTER 2021-08-19 00:38 | Emergency (ER) | payer OTHER, BC ==
[~2021-08-19] VITALS: Ht 162.6 cm; Wt 74.8 kg
[2021-08-19 03:41] LABS: SARS-Cov-2 (COVID-19) PCR, MMC NEGATIVE (NEGATIVE)
[2021-08-19] MEDS ORDERED: Prednisone20 MG PO (04:31)
== END 2021-08-19 05:22 | disposition home or self-care (01) ==
LOC: ER 00:38
PROVIDERS: Emergency Medicine
DX: J06.9 Acute upper respiratory infection, unspecified (principal); J45.909 Unspecified asthma, uncomplicated; Z20.822 Contact with and (suspected) exposure to COVID-19; E03.9 Hypothyroidism, unspecified; E11.9 Type 2 diabetes mellitus without complications; Z87.891 Personal history of nicotine dependence; Z79.899 Other long term (current) drug therapy
CPT/HCPCS: 71045; 93005; 93010; 99284-25; J7512; U0004

== ENCOUNTER → 2021-09-29 | Outpatient (CLI) | payer OTHER, BC ==
[2021-09-29 19:09] LABS: BASOPHILS ABSOLUTE AUTO 0.09 K/mm3 (0.00-0.23); BASOPHILS PERCENT AUTO 1 % (0-2); EOSINOPHILS ABSOLUTE AUTO 0.13 K/mm3 (0.00-0.68); EOSINOPHILS PERCENT AUTO 2 % (0-6); Hematocrit 37.1 % (33.0-51.0); Hemoglobin 11.4 g/dL (11.5-16.0); IMMATURE GRAN ABSOLUTE AUTO 0.01 K/mm3 (0.00-0.10); IMMATURE GRAN PERCENT AUTO 0 % (0-1); LYMPHOCYTES ABSOLUTE AUTO 1.99 K/mm3 (0.84-5.20); LYMPHOCYTES PERCENT AUTO 31 % (21-46); MONOCYTES ABSOLUTE AUTO 0.44 K/mm3 (0.16-1.47); MONOCYTES PERCENT AUTO 7 % (4-13); Mean Corpuscular HGB 26.8 pg (26.0-34.0); Mean Corpuscular HGB Conc 30.7 g/dL (31.5-36.5); Mean Corpuscular Volume 87 fL (80-100); Mean Platelet Volume 11.4 fL (9.1-12.4); NEUTROPHILS ABSOLUTE AUTO 3.73 K/mm3 (1.96-9.15); NEUTROPHILS PERCENT AUTO 58 % (41-73); Platelet Count 397 K/mm3 (150-400); RDW Coefficient Variation 14.3 % (11.7-14.2); RDW Standard Deviation 45.7 fL (35.1-46.3); Red Blood Cell Count 4.25 M/mm3 (3.80-5.20); White Blood Cell Count 6.39 K/mm3 (4.00-11.30)
== END | disposition home or self-care (01) ==
LOC: LAB SHORT 14:25
PROVIDERS: Internal Medicine Hematology & Oncology
DX: D64.9 Anemia, unspecified (principal)
CPT/HCPCS: 85025

== ENCOUNTER 2021-11-08 17:16 | Emergency (ER) | payer BC, OTHER ==
[~2021-11-08] VITALS: Ht 162.6 cm; Wt 70.3 kg
[~2021-11-08 17:16] MED LIST changes: +LAMO100 PO; -LAMOTRIGINE25 M2 PO
[2021-11-08 18:26] LABS: BASOPHILS ABSOLUTE AUTO 0.09 K/mm3 (0.00-0.23); BASOPHILS PERCENT AUTO 1 % (0-2); EOSINOPHILS ABSOLUTE AUTO 0.17 K/mm3 (0.00-0.68); EOSINOPHILS PERCENT AUTO 2 % (0-6); Hematocrit 42.5 % (33.0-51.0); Hemoglobin 13.5 g/dL (11.5-16.0); IMMATURE GRAN ABSOLUTE AUTO 0.02 K/mm3 (0.00-0.10); IMMATURE GRAN PERCENT AUTO 0 % (0-1); LYMPHOCYTES ABSOLUTE AUTO 2.66 K/mm3 (0.84-5.20); LYMPHOCYTES PERCENT AUTO 36 % (21-46); MONOCYTES ABSOLUTE AUTO 0.33 K/mm3 (0.16-1.47); MONOCYTES PERCENT AUTO 5 % (4-13); Mean Corpuscular HGB 28.2 pg (26.0-34.0); Mean Corpuscular HGB Conc 31.8 g/dL (31.5-36.5); Mean Corpuscular Volume 89 fL (80-100); Mean Platelet Volume 11.4 fL (9.1-12.4); NEUTROPHILS ABSOLUTE AUTO 4.09 K/mm3 (1.96-9.15); NEUTROPHILS PERCENT AUTO 56 % (41-73); Platelet Count 273 K/mm3 (150-400); RDW Standard Deviation 55.8 fL (35.1-46.3); Red Blood Cell Count 4.78 M/mm3 (3.80-5.20); White Blood Cell Count 7.36 K/mm3 (4.00-11.30)
[2021-11-08] MEDS ORDERED: METHYLPHENIDATE20 M1 PO (18:31)
[2021-11-08] MEDS ORDERED: QVAR REDIHALE10.6 G2 INH (18:31)
[2021-11-08 19:01] LABS: Alanine Aminotransfer (ALT/SGP 41 U/L (12-78); Albumin/Globulin Ratio 1.3 (0.8-1.8); Alk Phos 53 U/L (50-136); Anion Gap 4 mmol/L (6-16); Aspartate Aminotrans (AST/SGOT 23 U/L (12-37); Bilirubin, Total 0.5 mg/dL (0.1-1.0); Blood Urea Nitrogen 15 mg/dL (8-24); Bun/Creatinine Ratio 15.9 (12.0-20.0); CO2, Blood 27 mmol/L (21-32); Calcium, Blood 9.2 mg/dL (8.5-10.1); Chloride, Blood 108 mmol/L (98-108); Creatinine, Blood 0.94 mg/dL (0.40-1.00); Globulin, Blood 3.1 g/dL (2.2-4.0); Glomerular Filtration Rate >60 (60-); Glucose, Blood 107 mg/dL (70-99); Potassium, Blood 3.6 mmol/L (3.5-5.5); Sodium, Blood 139 mmol/L (136-145); Total Protein, Blood 7.1 g/dL (6.4-8.2)
[2021-11-08 19:10] LABS: Source, Urine Clean Catch
[2021-11-08 19:16] LABS: Appearance, Urine Clear (Clear); Bilirubin, Urine Neg (Neg); Blood, Urine Neg (Neg); Color, Urine Yellow (P-Yellow); Glucose Qualitative, Urine Neg (Neg); Ketones, Urine 1+ (Neg); Leukocyte Esterase, Urine 1+ (Neg); Nitrite, Urine Neg (Neg); Protein, Urine Neg (Neg); Urobilinogen, Urine NORM (Normal); pH, Urine 6.5 (5.0-8.0)
[2021-11-08 19:22] LABS: Bacteria Mod /hpf; Red Blood Cells, Urine 0-2 /hpf (0-2); Squamous Epithelial Cells Few /hpf (Few)
[2022-06-01] MEDS ORDERED: ATEN25 PO ×2 (14:20→14:51)
== END 2021-11-08 20:43 | disposition home or self-care (01) ==
LOC: ER 17:16
PROVIDERS: Physician Assistant
DX: R53.1 Weakness (principal); Z79.899 Other long term (current) drug therapy; Z79.52 Long term (current) use of systemic steroids; J45.909 Unspecified asthma, uncomplicated; E03.9 Hypothyroidism, unspecified; E11.9 Type 2 diabetes mellitus without complications; Z87.891 Personal history of nicotine dependence
CPT/HCPCS: 36415; 80053; 81001; 85025; 87086; 99284

== ENCOUNTER → 2021-11-17 | Outpatient (CLI) | payer OTHER, BC ==
[~2021-11-17] MED LIST changes: -LAMO100 PO; +LAMOTRIGINE25 M2 PO; +METHYLPHENIDATE20 M1 PO; +QVAR REDIHALE10.6 G2 INH
[2021-11-17 21:15] LABS: Percent Saturation 40.8 % (15.0-50.0)
== END | disposition home or self-care (01) ==
LOC: LAB SHORT 18:03
PROVIDERS: Internal Medicine Hematology & Oncology
DX: D50.0 Iron deficiency anemia secondary to blood loss (chronic) (principal); E53.8 Deficiency of other specified B group vitamins
CPT/HCPCS: 82607; 82728; 82746; 83540; 83550

== ENCOUNTER 2022-06-29 01:09 | Day surgery (SDC) | payer BC, MEDICARE ==
[~2022-06-29 01:09] MED LIST changes: +LAMO100 PO; -LAMOTRIGINE25 M2 PO
[2022-06-29] MEDS ORDERED: ALBU90OI INH (14:27)
[2022-06-29] MEDS ORDERED: ZYRTEC10 M2 PO (14:28)
[2022-06-29] MEDS ORDERED: DULO60 PO (14:29)
[2022-06-29] MEDS ORDERED: ESTRADIOL2 MG PO (14:30)
[2022-06-29] MEDS ORDERED: FLUTICASONE P15.8 M1 (14:32)
== END 2022-06-29 16:12 | disposition home or self-care (01) ==
LOC: ATC 01:09
DX: E86.0 Dehydration (principal); E11.9 Type 2 diabetes mellitus without complications; Z91.018 Allergy to other foods; G43.909 Migraine, unspecified, not intractable, without status migrainosus; E03.9 Hypothyroidism, unspecified; J45.20 Mild intermittent asthma, uncomplicated; F43.10 Post-traumatic stress disorder, unspecified; X58.XXXA Exposure to other specified factors, initial encounter
CPT/HCPCS: 96360; 96361; J7120

== ENCOUNTER 2022-07-05 11:30 | Emergency (ER) | payer BC, MEDICARE ==
[~2022-07-05] VITALS: Ht 162.6 cm; Wt 74.8 kg
[~2022-07-05 11:30] MED LIST changes: +ESTRADIOL2 MG PO; +FLUTICASONE P15.8 M1; +ZYRTEC10 M2 PO
== END 2022-07-05 16:10 | disposition home or self-care (01) ==
LOC: ER 11:30
DX: R51.9 Headache, unspecified (principal)
CPT/HCPCS: 96374; 96375; 99283-25; A9270; J0780; J1885

== ENCOUNTER 2022-09-23 18:08 | Emergency (ER) | payer BC, MEDICARE ==
[~2022-09-23] VITALS: Ht 162.6 cm; Wt 77.1 kg
[2022-09-23 20:23] LABS: BASOPHILS ABSOLUTE AUTO 0.11 K/mm3 (0.00-0.23); BASOPHILS PERCENT AUTO 1 % (0-2); EOSINOPHILS ABSOLUTE AUTO 0.15 K/mm3 (0.00-0.68); EOSINOPHILS PERCENT AUTO 2 % (0-6); Hematocrit 40.5 % (33.0-51.0); Hemoglobin 13.8 g/dL (11.5-16.0); IMMATURE GRAN PERCENT AUTO 0 % (0-1); LYMPHOCYTES ABSOLUTE AUTO 3.08 K/mm3 (0.84-5.20); LYMPHOCYTES PERCENT AUTO 37 % (21-46); MONOCYTES ABSOLUTE AUTO 0.42 K/mm3 (0.16-1.47); MONOCYTES PERCENT AUTO 5 % (4-13); Mean Corpuscular HGB 30.7 pg (26.0-34.0); Mean Corpuscular HGB Conc 34.1 g/dL (31.5-36.5); Mean Corpuscular Volume 90 fL (80-100); Mean Platelet Volume 11.3 fL (9.1-12.4); NEUTROPHILS ABSOLUTE AUTO 4.64 K/mm3 (1.96-9.15); NEUTROPHILS PERCENT AUTO 55 % (41-73); Platelet Count 318 K/mm3 (150-400); RDW Coefficient Variation 12.4 % (11.7-14.2); RDW Standard Deviation 41.1 fL (35.1-46.3); Red Blood Cell Count 4.49 M/mm3 (3.80-5.20)
[2022-09-23 20:44] LABS: CPK Creatine Kinase 78 U/L (26-193); Ethanol (Alcohol), Blood, Med <3 mg/dL; Salicylate <1.7 mg/dL (2.8-20.0)
[2022-09-23 20:45] LABS: Acetaminophen, Random <2.0 ug/mL (10.0-30.0); Alanine Aminotransfer (ALT/SGP 29 U/L (12-78); Albumin, Blood 3.9 g/dL (3.4-5.0); Albumin/Globulin Ratio 1.3 (0.8-1.8); Alk Phos 65 U/L (50-136); Anion Gap 5 mmol/L (6-16); Aspartate Aminotrans (AST/SGOT 22 U/L (12-37); Bilirubin, Total 0.8 mg/dL (0.1-1.0); Blood Urea Nitrogen 13 mg/dL (8-24); Bun/Creatinine Ratio 15.6 (12.0-20.0); CO2, Blood 23 mmol/L (21-32); Calcium, Blood 9.3 mg/dL (8.5-10.1); Chloride, Blood 111 mmol/L (98-108); Creatinine, Blood 0.83 mg/dL (0.40-1.00); Glomerular Filtration Rate 90 (60-); Glucose, Blood 92 mg/dL (70-99); Sodium, Blood 139 mmol/L (136-145); Total Protein, Blood 6.9 g/dL (6.4-8.2)
== END 2022-09-23 22:57 | disposition home or self-care (01) ==
LOC: ER 18:08
PROVIDERS: Physician Assistant
DX: S09.90XA Unspecified injury of head, initial encounter (principal); S16.1XXA Strain of muscle, fascia and tendon at neck level, initial encounter; E03.9 Hypothyroidism, unspecified; E11.9 Type 2 diabetes mellitus without complications; J45.909 Unspecified asthma, uncomplicated; W19.XXXA Unspecified fall, initial encounter; Z88.8 Allergy status to other drugs, medicaments and biological substances; Z79.899 Other long term (current) drug therapy; Z91.018 Allergy to other foods
CPT/HCPCS: 36415; 70450; 72125; 80053; 82550; 85025; 93005; 93010; G0480

== ENCOUNTER 2022-12-18 09:05 | Day surgery (SDC) | payer OTHER ==
[~2022-12-18] VITALS: Ht 162.6 cm; Wt 78.0 kg
[~2022-12-18 09:05] MED LIST changes: +ABILIFY MYCITE10 M2; +ASPIR 8181 M1; +ATEN50; +ATOR40TA; +Acetaminophen650 M1; +EUTHYROX50 MCG; +FLUDROCORTISON0.1 M1; +METPHE20; +POTCHL20ER; +TRAM50; +TRAZ100
--- NOTE | 2022-12-18 13:07 | NUR ---
PT HAS BEEN UP TO BATHROOM. R RADIAL SITE REMAINS STABLE. DISCHARGE REVIEWED WITH PT, VERBALIZES UNDERSTANDING OF INSTRUCTIONS. PT HAS NO QUESTIONS AT THIS TIME.
--- NOTE | 2022-12-18 13:28 | NUR ---
PT DRESSED WITH ASSIST FROM MOM. SALINE LOCK REMOVED WITH CATHETER INTACT. TR BAND REMOVED, AREA CLEANSED AND CLOTH DOT PLACED. ARM BOARD PLACED TO R ARM AND ARM SLING PROVIDED. PT DISCHARGED IN CARE OF MOM. PT TO PRIVATE VEHICLE WITH ASSIST OF WHEELCHAIR AND ONE STAFF.
== END 2022-12-18 14:07 | disposition home or self-care (01) ==
LOC: MHTC 09:05
DX: R07.89 Other chest pain (principal); I25.10 Atherosclerotic heart disease of native coronary artery without angina pectoris; R55 Syncope and collapse; E11.9 Type 2 diabetes mellitus without complications; J45.909 Unspecified asthma, uncomplicated; E03.9 Hypothyroidism, unspecified; Z91.02 Food additives allergy status; Z79.84 Long term (current) use of oral hypoglycemic drugs; Z79.899 Other long term (current) drug therapy
CPT/HCPCS: 76937; 93454; 99152; 99153; A9270; C1769; C1887; C1894; J1644; J2250; J3010; J7030; J7050; Q9967